=== PATIENT | male | born 2000 | race Caucasian/White ===

== ENCOUNTER 2018-04-27 12:48 | Emergency (ER) | payer OTHER, BC ==
[2018-04-27 12:53] VITALS: BP 146/91; PULSE 74; RESP 18; TEMP 98.4
[2018-04-27] MEDS ORDERED: DIPH,PERTUS(ACELL)TETVAC-LF 0.5 ML VIAL IM ONE (13:03)
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
== END 2018-04-27 13:40 | disposition home or self-care (01) ==
LOC: EC 12:48
DX: S51.812A Laceration without foreign body of left forearm, initial encounter (principal); M54.2 Cervicalgia; M79.644 Pain in right finger(s); Z23 Encounter for immunization; Z88.1 Allergy status to other antibiotic agents; V43.52XA Car driver injured in collision with other type car in traffic accident, initial encounter; Y92.89 Other specified places as the place of occurrence of the external cause
CPT/HCPCS: 90471; 90715; 99283